=== PATIENT | male | born 1995 | race Asian ===

== ENCOUNTER 2019-07-05 11:51 | Emergency (ER) | payer SELFPAY ==
[~2019-07-05] VITALS: Ht 165.1 cm; Wt 109.0 kg
[2019-07-05 12:01] VITALS: BP 145/77
[2019-07-05] MEDS ORDERED: CYCL10TA2 PO (12:29)
[2019-07-05] MEDS ORDERED: NAPR-514 PO (12:29)
[2019-07-05] MEDS ORDERED: METH4TAB2 PO (12:29)
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
== END 2019-07-05 12:32 | disposition home or self-care (01) ==
LOC: ER 11:51
DX: G89.29 Other chronic pain (principal); M54.5 Low back pain
CPT/HCPCS: 99283

== ENCOUNTER 2020-05-09 21:23 | Emergency (ER) | payer SELFPAY ==
[~2020-05-09] VITALS: Ht 167.6 cm; Wt 81.0 kg
[~2020-05-09 21:23] MED LIST: CYCL10TA2 PO; METH4TAB2 PO; NAPR-514 PO
--- NOTE | 2020-05-09 22:14 | PHYS DOC ---
Past Medical History Past Medical History: Other Additional Past Medical Histor: CHRONIC BACK PAIN Past Surgical History: No Surgical History Smoking Status: Never Smoker Alcohol Use: None General Adult EDM: Chief Complaint: ABDOMINAL PAIN HPI: HPI: This patient is a 24-year-old male with no past abdominal surgical history and no significant past medical history yesterday he ate [place] food and a couple hours later when he was sleeping he woke up with 8 out of 10 abdominal pain in the epigastric region. He states the pain comes and goes, when he rolls over on his right side the pain gets worse. Sitting down makes the pain worse. The patient describes the pain as squeezing in character. Rather he describes the pain as localized to his epigastric region and states that it does not radiate elsewhere. He states that when he massages his epigastric region that the pain gets better, also aspirin has helped. The patient denies any history of pancreatitis, but does endorse a significant alcohol intake up to 1.5 weeks ago when he stopped his habit. He states that he he drank up to 1.75 L of liquor a day in addition to beer and other mixed drinks. Additionally, the patient last used methamphetamine 3 months ago. Review of Systems: Review of Systems: Constitutional: Denies fever or chills Eyes: Denies redness or eye pain HENT: Denies nasal congestion or sore throat Respiratory: Denies cough or shortness of breath Cardiovascular: Denies chest pain or palpitations GI: Reports epigastric abdominal pain, nausea, and 8x bouts of diarrhea today; denies vomiting : Denies dysuria or hematuria Musculoskeletal: Denies back pain or joint pain Integument: Denies rash or skin lesions Neurologic: Denies headache, focal weakness or sensory changes Complete systems were reviewed and found to be within normal limits, except as documented in this note. Allergies: Allergies: Allergies Coded Allergies Type Severity Reaction Last Updated Verified No Known Drug Allergies 07/05/19 No Physical Exam: PE: Constitutional: Well developed, well nourished, no acute distress, non-toxic redd earance HENT: Normocephalic, atraumatic Eyes: PERRL, EOMI, mild scleral icterus, no discharge Neck: Normal range of motion, no tenderness, supple Lungs & Thorax: No respiratory distress, equal chest rise and fall Abdomen: Tenderness to light and deep palpation to epigastric region, negative Kaye's sign, negative heeltap, negative McBurney's sign, negative Rovsing's sign, negative [place] sign, traveling freight agent sign Back: No tenderness, no CVA tenderness Extremities: No tenderness, ROM intact, no edema Neurologic: Alert and oriented X 3, normal motor function, normal sensory function, no focal deficits noted Psychologic: Affect normal, judgment normal EKG: EKG: [] Radiology/Procedures: Radiology/Procedures: [] Dragon Disclaimer: Dragon Disclaimer: This electronic medical record was generated, in whole or in part, using a voice recognition dictation system. Departure Departure Impression: Primary Impression: Epigastric abdominal pain Disposition: 01 DC HOME SELF CARE/HOMELESS Condition: STABLE Referrals: NO PCP (PCP) DIEGO ACEVES MD Patient Instructions: Abdominal Pain (Nonspecific), Gastritis, Adult, [id number], Nausea, Adult, [id number] Scripts Famotidine (PEPCID) 20 Mg Tablet 20 MG PO BID, #10 TAB Prov: SIVA SANDOVAL DO 05/09/20 Ondansetron (ONDANSETRON ODT) 4 Mg Tab.rapdis 1 TAB PO PRN Q6-8HRS PRN for NAUSEA, #16 TAB Prov: SIVA SANDOVAL DO 05/09/20 SIVA SANDOVAL DO May 09, 2020 22:14
[2020-05-09] MEDS ORDERED: ONDANSETRON PF 4 MG/2 ML VIAL. IVP ONE (22:45)
[2020-05-09] MEDS ORDERED: LIDO:MAALOX 1:1 20 ML SINGLE DOSE. PO ONE (22:45)
[2020-05-09] MEDS ORDERED: FAMOTIDINE 20 MG/2 ML VIAL IVP ONE (22:45)
[2020-05-09] MEDS ORDERED: IV NORMAL SALINE 1000ML BAG 1,000 ML IV ONE (22:45)
[2020-05-09 22:47] LABS: BASO % 1 % (0-3); EOS % 1 % (0-3); HEMATOCRIT 48.4 % (39.0-53.0); HEMOGLOBIN 16.1 g/dL (13.0-17.5); LYMPH % 15 % (24-48); MEAN CORPUSCULAR HEMOGLOBIN 27 pg (25-35); MEAN CORPUSCULAR HGB CONC 33 g/dL (31-37); MEAN CORPUSCULAR VOLUME 82 fL (79-100); MONO # 0.5 x10^3/uL (0.0-1.1); MONO % 8 % (0-9); NEUT # 5.1 x10^3/uL (1.8-7.7); NEUT % 77 % (31-73); PLATELET COUNT 199 x10^3/uL (140-400); RED BLOOD COUNT 5.91 x10^6/uL (4.30-5.70); RED CELL DISTRIBUTION WIDTH 13.6 % (11.5-14.5); WHITE BLOOD COUNT 6.7 x10^3/uL (4.0-11.0)
[2020-05-09 22:54] LABS: CALCIUM 8.1 mg/dL (8.5-10.1); GFR 90.3; POTASSIUM 3.5 mmol/L (3.5-5.1)
[2020-05-09 23:00] LABS: ALBUMIN 3.5 g/dL (3.4-5.0); ALBUMIN/GLOBULIN RATIO 0.9 (1.0-1.7); TOTAL BILIRUBIN 0.3 mg/dL (0.2-1.0); TOTAL PROTEIN 7.6 g/dL (6.4-8.2)
[2020-05-09] MEDS ORDERED: ONDA4TAB12 PO (23:17)
[2020-05-09] MEDS ORDERED: FAMO-63 PO (23:17)
[2020-05-09 23:30] VITALS: BP 123/86
== END 2020-05-09 23:48 | disposition home or self-care (01) ==
LOC: ER 21:23
DX: R10.13 Epigastric pain (principal); R19.7 Diarrhea, unspecified; R11.0 Nausea; G89.29 Other chronic pain
CPT/HCPCS: 36415; 80053; 83690; 83735; 85025; 96361; 96374; 96375; 99285; J2405; J3490; J7030; 99284